=== PATIENT | male | born 1955 | race Caucasian/White ===

== ENCOUNTER 2021-01-17 13:02 | Emergency (ER) | payer MEDICARE, MEDICAID ==
[~2021-01-17] VITALS: Ht 157.5 cm; Wt 60.0 kg
[2021-01-17 13:16] VITALS: BP_DIAS 69
[2021-01-17] MEDS ORDERED: ACETAMINOPHEN 325MG TABLET PO ONE (13:45)
[2021-01-17] MEDS ORDERED: TETANUS, DIPHTHERIA, PERTUSSIS VAC/PF 0.5ML (>10YR OLD) IM ONE (13:45)
[2021-01-17] MEDS ORDERED: AMOX-424 MT (14:25)
[2021-01-17] MEDS ORDERED: TOPUD MT (14:25)
[2021-01-17] MEDS ORDERED: BACITRACIN ZINC OINT UDPKT TOP ONE (14:30)
[2021-01-17 15:13] VITALS: BP_SYST 115
== END 2021-01-17 15:14 | disposition home or self-care (01) ==
LOC: ER 13:19
DX: S81.851A Open bite, right lower leg, initial encounter (principal); I10 Essential (primary) hypertension; W54.0XXA Bitten by dog, initial encounter; Y93.89 Activity, other specified; Y92.9 Unspecified place or not applicable
CPT/HCPCS: 73590; 90471; 90715; 99283